=== PATIENT | female | born 1950 | race Two or more races ===

== ENCOUNTER 2022-11-21 16:20 | Emergency (ER) | payer OTHER ==
[~2022-11-21] VITALS: Ht 167.6 cm; Wt 86.2 kg
[2022-11-21] MEDS ORDERED: SYNTHROID100 MCG (16:46)
[2022-11-21] MEDS ORDERED: JANUMET 50-1,01 EACH (16:46)
[2022-11-21] MEDS ORDERED: LOSARTAN POTASS50 MG (16:47)
[2022-11-21 17:11] LABS: HEMATOCRIT 34.6 % (36.0-45.00); HEMOGLOBIN 11.4 g/dL (12.0-15.00); MEAN CELL VOLUME 79.8 fL (80.00-100.00); MEAN CORPUSCULAR HEMOGLOBIN 26.2 pg (27.00-32.0); MEAN CORPUSCULAR HGB CONC 32.9 g/dl (32.0-36.0); PLATELET COUNT 225 K/uL (150-450); RED BLOOD COUNT 4.34 M/uL (4.00-6.00)
[2022-11-21 17:24] LABS: ABG PO2 107.9 mmHg (80-100); ABG pCO2 34.9 mmHg (35-45); BASE EXCESS 2.3 mmol/l; BICARBONATE 25.4 mmol/l (23-25); SaO2 98.6 %
[2022-11-21 17:31] LABS: PARTIAL THROMBOPLASTIN TIME 27.8 SECONDS (22.0-34.0)
[2022-11-21 17:40] LABS: ALBUMIN 4.4 gm/dL (3.4-5.0); BILIRUBIN TOTAL 0.38 mg/dL (0.3-1.2); CALCIUM 10.6 mg/dL (8.5-10.1); CREATININE SERUM 1.61 mg/dL (0.55-1.02); GFR 31.37; GLOBULINA 3.9 G/DL (2.4-3.5); POTASSIUM 4.84 mEq/L (3.5-5.1); TOTAL PROTEIN 8.3 gm/dL (6.4-8.2)
== END 2022-11-21 20:54 | disposition home or self-care (01) ==
LOC: ER 16:21
PROVIDERS: General Practice
DX: R07.89 Other chest pain (principal); E11.9 Type 2 diabetes mellitus without complications; Z79.84 Long term (current) use of oral hypoglycemic drugs; I10 Essential (primary) hypertension; Z20.822 Contact with and (suspected) exposure to COVID-19